=== PATIENT | female | born 1935 | race Caucasian/White ===

== ENCOUNTER 2016-08-07 11:42 | Inpatient (IN) | payer MEDICARE, MEDICAID ==
[~2016-08-07] VITALS: Ht 152.4 cm; Wt 56.4 kg
[2016-08-07] MEDS ORDERED: SODIUM CHLORIDE 0.9% 1000ML BAG (SEPSIS BOLUS) IV ONE (12:00)
[2016-08-07 12:22] LABS: HEMATOCRIT. 30.8 % (36.0-48.0); HEMOGLOBIN. 9.8 g/dL (12.0-16.0); MEAN CORPUSCULAR HEMOGLOBIN 26.1 pg (28.0-32.0); MEAN CORPUSCULAR HGB CONC 31.7 g/dL (31.0-37.0); MEAN CORPUSCULAR VOLUME 82.5 fL (81.0-99.0); PLATELET 635 x1000/uL (130-400); RED BLOOD CELL COUNT 3.73 mill/uL (4.2-5.4); RED CELL DISTRIBUTION WIDTH 15.9 % (11.6-14.6)
[2016-08-07 12:25] LABS: DIFFERENTIAL COMMENT 1; WHITE BLOOD COUNT 43.2 x1000/uL (4.5-11.0)
[2016-08-07 12:29] LABS: INR 1.1; PROTHROMBIN TIME 11.2 sec
[2016-08-07 12:30] LABS: ALBUMIN 1.7 g/dL (3.4-5.0); ANION GAP 14; CALCIUM 8.9 mg/dL (8.5-10.1); CARBON DIOXIDE 30 mEq/L (21-32); CHLORIDE 101 mEq/L (98-107); INDEX HEMOLYSI 1 (1-3); INDEX ICTERIC 1 (1-4); INDEX LIPEMIC 1 (1-3); UREA NITROGEN BLOOD 26 mg/dL (7-21)
[2016-08-07 12:37] LABS: ALANINE AMINOTRANSFERASE 16 IU/L (13-61); TROPONIN I < 0.02 ng/mL (0.00-0.04); eGFR > 60 mL/min (>60)
[2016-08-07 12:39] LABS: LACTIC ACID 2.6 mmol/L (0.4-2.0)
[2016-08-07] MEDS ORDERED: KCL 10MEQ/50ML PREMIX 50 ML IV ONE (12:45)
[2016-08-07] MEDS ORDERED: METRONIDAZOLE 500 MG PREMIX 100 ML IV ONE (12:45)
[2016-08-07] MEDS ORDERED: POTASSIUM CHLORIDE 20MEQ TABLET SR PO ONE (12:45)
[2016-08-07] MEDS ORDERED: CEFTRIAXONE 2 G PREMIX 50 ML IV ONE (12:45)
[2016-08-07 12:51] LABS: MAGNESIUM 1.7 mg/dL (1.8-2.4)
[2016-08-07 13:18] LABS: NUCLEATED RED BLOOD CELLS 1 /100 WBC; PLATELET ESTIMATE MARKEDLY INCREASED; ROULEAUX 1+
[2016-08-07 13:19] LABS: ANISOCYTOSIS 1+
[2016-08-07 13:50] LABS: CLARITY URINE CLOUDY (CLEAR); COLOR URINE DARK YELLOW (YELLOW); GLUCOSE URINE 1+ (NEGATIVE); KETONES URINE NEGATIVE (NEGATIVE); LEUKOCYTE ESTERASE URINE NEGATIVE (NEGATIVE); NITRITE URINE NEGATIVE (NEGATIVE); OCCULT BLOOD URINE NEGATIVE (NEGATIVE); PH URINE 5.5 (4.5-8.0); PROTEIN URINE 2+ (NEGATIVE); SPECIFIC GRAVITY URINE 1.021 (1.005-1.030)
[2016-08-07 14:37] LABS: FINE GRANULAR CASTS URINE 0-5 /lpf; HYALINE CASTS URINE 0-5 /lpf; SQUAMOUS EPITHELIAL CELL URINE RARE /lpf (RARE/1+)
[2016-08-07 14:45] LABS: BACTERIA URINE 3+; RBC URINE NONE SEEN /hpf (0-2); WBC URINE 0-2 /hpf (0-2)
[2016-08-07] MEDS ORDERED: ACETAMINOPHEN 650MG SUPP PR ONE (15:00)
[2016-08-07 18:10] VITALS: BP 136/67
[2016-08-07] MEDS ORDERED: DIATR MEGLU/DIATRIZOATE SOLN 30ML PO SCH (18:30)
[2016-08-07 19:00] VITALS: BP 124/51
[2016-08-07 20:00] VITALS: BP 124/51
[2016-08-07] MEDS ORDERED: METRONIDAZOLE 500 MG PREMIX 100 ML IV SCH ×2 (20:00→23:15)
[2016-08-07 22:00] VITALS: BP 144/83
[2016-08-07] MEDS ORDERED: SODIUM CHLORIDE 0.9% 1,000 ML IV SCH (22:15)
[2016-08-07] MEDS ORDERED: DEXTROSE 50% WATER 50ML SYRINGE IV PRN (22:15)
[2016-08-07] MEDS: VANCOMYCIN HCL 1000 MG/20 ML ORAL PO SCH (22:27)
[2016-08-07] MEDS: METRONIDAZOLE 500 MG PREMIX 100 ML IV SCH (23:00)
[2016-08-07] MEDS: SODIUM CHLORIDE 0.9% 1,000 ML IV SCH (23:01)
[2016-08-07] MEDS: CEFEPIME 1,000 MG in DEXTROSE 5% WATER 50 ML IV SCH (23:55)
[2016-08-08] VITALS (12 sets, daily range): BP systolic 117–136; BP diastolic 51–76
[2016-08-08] MEDS ORDERED: INFLUENZA VIRUS VACCINE 0.5ML SYR IM ONE (00:15)
[2016-08-08] MEDS ORDERED: POTASSIUM CHLORIDE 20 MEQ/PACKET PO NR (00:15)
[2016-08-08] MEDS: VANCOMYCIN HCL 1000 MG/20 ML ORAL PO SCH ×5 (00:44→23:00)
[2016-08-08] MEDS ORDERED: MAGNESIUM 1 G PREMIX 100 ML IV NR ×2 (01:00→02:00)
[2016-08-08] MEDS: METRONIDAZOLE 500 MG PREMIX 100 ML IV SCH ×3 (06:08→22:39)
[2016-08-08 06:38] LABS: CHLORIDE 106 mEq/L (98-107); INDEX HEMOLYSI 1 (1-3); INDEX ICTERIC 1 (1-4); INDEX LIPEMIC 1 (1-3)
[2016-08-08 06:55] LABS: HEMATOCRIT. 26.1 % (36.0-48.0); HEMOGLOBIN. 8.2 g/dL (12.0-16.0); MEAN CORPUSCULAR HEMOGLOBIN 26.1 pg (28.0-32.0); MEAN CORPUSCULAR HGB CONC 31.5 g/dL (31.0-37.0); MEAN CORPUSCULAR VOLUME 82.7 fL (81.0-99.0); PLATELET 447 x1000/uL (130-400); RED BLOOD CELL COUNT 3.16 mill/uL (4.2-5.4); RED CELL DISTRIBUTION WIDTH 16.1 % (11.6-14.6); WHITE BLOOD COUNT 36.1 x1000/uL (4.5-11.0)
[2016-08-08 06:59] LABS: ANION GAP 11; CARBON DIOXIDE 26 mEq/L (21-32); UREA NITROGEN BLOOD 24 mg/dL (7-21); eGFR > 60 mL/min (>60)
[2016-08-08 07:18] LABS: DIFFERENTIAL COMMENT 1
[2016-08-08] MEDS: BLOOD SUGAR DIAGNOSTIC STRIP TEST SCH ×4 (07:30→21:00)
[2016-08-08] MEDS: INSULIN LISPRO 100 UNITS/ML SUBCUT SCH ×4 (08:00→22:44)
[2016-08-08] MEDS: CEFEPIME 1,000 MG in DEXTROSE 5% WATER 50 ML IV SCH (09:32)
[2016-08-08] MEDS ORDERED: LIDOCAINE HCL 1% 20ML VIAL (Pyxis) INJ INFIL NR (10:15)
[2016-08-08 10:44] LABS: ANISOCYTOSIS 1+; PLATELET ESTIMATE INCREASED
[2016-08-08] MEDS: SODIUM CHLORIDE 0.9% 1,000 ML IV SCH (17:00)
[2016-08-08] MEDS ORDERED: MAGN400T26 PO (17:58)
[2016-08-08] MEDS ORDERED: AMLO5TAB4 PO (17:58)
[2016-08-08] MEDS ORDERED: CHOL20004 PO (17:58)
[2016-08-08] MEDS ORDERED: POTA10TA15 PO (17:58)
[2016-08-08] MEDS ORDERED: INSU3INS6 SQ (17:59)
[2016-08-09] VITALS (26 sets, daily range): BP systolic 110–143; BP diastolic 49–110
[2016-08-09] MEDS: METRONIDAZOLE 500 MG PREMIX 100 ML IV SCH ×2 (06:15→14:15)
[2016-08-09] MEDS: VANCOMYCIN HCL 1000 MG/20 ML ORAL PO SCH ×3 (06:16→17:33)
[2016-08-09 06:48] LABS: HEMATOCRIT. 24.8 % (36.0-48.0); MEAN CORPUSCULAR HEMOGLOBIN 26.5 pg (28.0-32.0); MEAN CORPUSCULAR HGB CONC 32.3 g/dL (31.0-37.0); MEAN PLATELET VOLUME 7.6 fl (7.4-10.4); RED BLOOD CELL COUNT 3.03 mill/uL (4.2-5.4); WHITE BLOOD COUNT 34.2 x1000/uL (4.5-11.0)
[2016-08-09 07:12] LABS: ANION GAP 11; CALCIUM 7.8 mg/dL (8.5-10.1); CARBON DIOXIDE 26 mEq/L (21-32); CHLORIDE 108 mEq/L (98-107); INDEX HEMOLYSI 1 (1-3); INDEX ICTERIC 1 (1-4); INDEX LIPEMIC 1 (1-3); UREA NITROGEN BLOOD 25 mg/dL (7-21); eGFR > 60 mL/min (>60)
[2016-08-09 07:28] LABS: DIFFERENTIAL COMMENT 1
[2016-08-09] MEDS: BLOOD SUGAR DIAGNOSTIC STRIP TEST SCH ×4 (07:30→21:05)
[2016-08-09] MEDS: CEFEPIME 1,000 MG in DEXTROSE 5% WATER 50 ML IV SCH ×2 (09:02→21:05)
[2016-08-09] MEDS: SODIUM CHLORIDE 0.9% 1,000 ML IV SCH (09:05)
[2016-08-09] MEDS: INSULIN LISPRO 100 UNITS/ML SUBCUT SCH ×4 (09:13→21:15)
[2016-08-09 09:21] LABS: ANISOCYTOSIS 1+; GIANT PLATELETS FEW; PLATELET 449 x1000/uL (130-400); PLATELET ESTIMATE INCREASED
[2016-08-10] VITALS (21 sets, daily range): BP systolic 115–168; BP diastolic 51–128
[2016-08-10] MEDS: METRONIDAZOLE 500 MG PREMIX 100 ML IV SCH ×4 (00:26→23:20)
[2016-08-10] MEDS: VANCOMYCIN HCL 1000 MG/20 ML ORAL PO SCH ×3 (00:26→12:05)
[2016-08-10] MEDS: SODIUM CHLORIDE 0.9% 1,000 ML IV SCH (00:26)
[2016-08-10] MEDS ORDERED: POTASSIUM CHLORIDE INJ 40 MEQ in DEXT 5% WATER 250 ML IV NR (01:00)
[2016-08-10] MEDS: BLOOD SUGAR DIAGNOSTIC STRIP TEST SCH ×4 (07:30→21:00)
[2016-08-10] MEDS: CEFEPIME 1,000 MG in DEXTROSE 5% WATER 50 ML IV SCH ×2 (08:36→23:20)
[2016-08-10] MEDS: INSULIN LISPRO 100 UNITS/ML SUBCUT SCH ×4 (08:37→21:13)
[2016-08-10 09:56] LABS: HEMATOCRIT. 33.9 % (36.0-48.0); MEAN CORPUSCULAR HEMOGLOBIN 26.8 pg (28.0-32.0); MEAN CORPUSCULAR HGB CONC 32.1 g/dL (31.0-37.0); MEAN CORPUSCULAR VOLUME 83.5 fL (81.0-99.0); MEAN PLATELET VOLUME 7.4 fl (7.4-10.4); PLATELET 404 x1000/uL (130-400); RED BLOOD CELL COUNT 4.06 mill/uL (4.2-5.4); WHITE BLOOD COUNT 32.4 x1000/uL (4.5-11.0)
[2016-08-10 09:58] LABS: DIFFERENTIAL COMMENT 1
[2016-08-10 09:59] LABS: HEMOGLOBIN. 10.9 g/dL (12.0-16.0)
[2016-08-10 10:12] LABS: ALANINE AMINOTRANSFERASE < 6 IU/L (13-61); ALBUMIN 1.2 g/dL (3.4-5.0); ANION GAP 15; CALCIUM 7.8 mg/dL (8.5-10.1); CARBON DIOXIDE 21 mEq/L (21-32); CHLORIDE 111 mEq/L (98-107); INDEX HEMOLYSI 1 (1-3); INDEX ICTERIC 1 (1-4); INDEX LIPEMIC 1 (1-3); MAGNESIUM 1.7 mg/dL (1.8-2.4); UREA NITROGEN BLOOD 22 mg/dL (7-21); eGFR > 60 mL/min (>60)
[2016-08-10 10:29] LABS: ANISOCYTOSIS 1+; PLATELET ESTIMATE SLIGHTLY INCREASED
[2016-08-10 10:30] LABS: TOXIC GRANULATION 1+
[2016-08-10] MEDS ORDERED: POTASSIUM CHLORIDE 20 MEQ/PACKET PO NR (11:30)
[2016-08-10] MEDS: AMLODIPINE 5MG TABLET PO SCH (12:05)
[2016-08-10] MEDS ORDERED: MAGNESIUM 1 G PREMIX 100 ML IV NR (13:30)
[2016-08-10] MEDS ORDERED: VANCOMYCIN 1 G PREMIX 200 ML IV SCH (18:00)
[2016-08-11] VITALS (12 sets, daily range): BP systolic 107–149; BP diastolic 39–108
[2016-08-11] MEDS: VANCOMYCIN 750 MG PREMIX 150 ML IV SCH ×2 (06:22→23:17)
[2016-08-11] MEDS: METRONIDAZOLE 500 MG PREMIX 100 ML IV SCH ×3 (06:26→22:34)
[2016-08-11] MEDS: BLOOD SUGAR DIAGNOSTIC STRIP TEST SCH ×4 (07:30→21:00)
[2016-08-11] MEDS: PANTOPRAZOLE 40MG DR TABLET PO SCH ×2 (09:38→16:49)
[2016-08-11] MEDS: AMLODIPINE 5MG TABLET PO SCH (09:38)
[2016-08-11] MEDS: CEFEPIME 1,000 MG in DEXTROSE 5% WATER 50 ML IV SCH ×2 (09:38→21:17)
[2016-08-11] MEDS: INSULIN LISPRO 100 UNITS/ML SUBCUT SCH ×4 (09:39→21:00)
[2016-08-11] MEDS ORDERED: LACTULOSE 20G/30ML UDC PO SCH (12:30)
[2016-08-11 12:58] LABS: HEMATOCRIT. 34.2 % (36.0-48.0); HEMOGLOBIN. 11.2 g/dL (12.0-16.0); MEAN CORPUSCULAR HEMOGLOBIN 26.9 pg (28.0-32.0); MEAN CORPUSCULAR HGB CONC 32.6 g/dL (31.0-37.0); MEAN CORPUSCULAR VOLUME 82.4 fL (81.0-99.0); PLATELET 470 x1000/uL (130-400); RED BLOOD CELL COUNT 4.15 mill/uL (4.2-5.4); WHITE BLOOD COUNT 28.5 x1000/uL (4.5-11.0)
[2016-08-11 13:00] LABS: DIFFERENTIAL COMMENT 1
[2016-08-11 13:20] LABS: CHLORIDE 114 mEq/L (98-107); INDEX HEMOLYSI 1 (1-3); INDEX ICTERIC 1 (1-4); INDEX LIPEMIC 1 (1-3)
[2016-08-11] MEDS: INSULIN DETEMIR UD 100 UNITS/ML SYR SUBCUT SCH (13:21)
[2016-08-11 13:28] LABS: ANION GAP 11; CALCIUM 7.9 mg/dL (8.5-10.1); CARBON DIOXIDE 21 mEq/L (21-32); UREA NITROGEN BLOOD 21 mg/dL (7-21); eGFR > 60 mL/min (>60)
[2016-08-11] MEDS ORDERED: POTASSIUM CHLORIDE 20MEQ TABLET SR PO NR ×2 (14:00→16:45)
[2016-08-11 14:15] LABS: ANISOCYTOSIS 1+; PLATELET ESTIMATE INCREASED
[2016-08-11] MEDS: ENOXAPARIN 60MG/0.6ML SYR SUBCUT SCH ×2 (16:51→23:17)
[2016-08-11] MEDS: SODIUM CHLORIDE 0.9% 1,000 ML IV SCH (17:00)
[2016-08-11] MEDS ORDERED: POTASSIUM CHLORIDE 20 MEQ/PACKET PO NR (17:30)
[2016-08-12] VITALS (11 sets, daily range): BP systolic 95–135; BP diastolic 35–93
[2016-08-12] MEDS: SODIUM CHLORIDE 0.9% 1,000 ML IV SCH ×2 (02:57→18:29)
[2016-08-12 06:43] LABS: HEMATOCRIT. 33.1 % (36.0-48.0); HEMOGLOBIN. 10.7 g/dL (12.0-16.0); MEAN CORPUSCULAR HEMOGLOBIN 26.5 pg (28.0-32.0); MEAN CORPUSCULAR HGB CONC 32.4 g/dL (31.0-37.0); MEAN CORPUSCULAR VOLUME 81.7 fL (81.0-99.0); MEAN PLATELET VOLUME 7.5 fl (7.4-10.4); PLATELET 454 x1000/uL (130-400); RED BLOOD CELL COUNT 4.05 mill/uL (4.2-5.4); RED CELL DISTRIBUTION WIDTH 16.5 % (11.6-14.6); WHITE BLOOD COUNT 27.8 x1000/uL (4.5-11.0)
[2016-08-12] MEDS: METRONIDAZOLE 500 MG PREMIX 100 ML IV SCH ×2 (06:50→15:30)
[2016-08-12] MEDS: BLOOD SUGAR DIAGNOSTIC STRIP TEST SCH ×3 (06:51→17:22)
[2016-08-12 06:57] LABS: ALANINE AMINOTRANSFERASE < 6 IU/L (13-61); ALBUMIN 1.2 g/dL (3.4-5.0); ANION GAP 12; BILIRUBIN DIRECT 0.1 mg/dL (0.0-0.2); CARBON DIOXIDE 22 mEq/L (21-32); CHLORIDE 115 mEq/L (98-107); INDEX HEMOLYSI 1 (1-3); INDEX ICTERIC 1 (1-4); INDEX LIPEMIC 1 (1-3); MAGNESIUM 1.7 mg/dL (1.8-2.4); UREA NITROGEN BLOOD 18 mg/dL (7-21); eGFR > 60 mL/min (>60)
[2016-08-12] MEDS: INSULIN LISPRO 100 UNITS/ML SUBCUT SCH ×3 (07:28→17:22)
[2016-08-12] MEDS: PANTOPRAZOLE 40MG DR TABLET PO SCH ×2 (08:54→17:22)
[2016-08-12] MEDS: CEFEPIME 1,000 MG in DEXTROSE 5% WATER 50 ML IV SCH (08:54)
[2016-08-12] MEDS: AMLODIPINE 5MG TABLET PO SCH (08:55)
[2016-08-12] MEDS: ENOXAPARIN 60MG/0.6ML SYR SUBCUT SCH (08:56)
[2016-08-12 09:29] LABS: DIFFERENTIAL COMMENT 1
[2016-08-12] MEDS: INSULIN DETEMIR UD 100 UNITS/ML SYR SUBCUT SCH (11:17)
[2016-08-12] MEDS ORDERED: POTASSIUM CHLORIDE 20 MEQ/PACKET PO NR (13:45)
[2016-08-12] MEDS ORDERED: MAGNESIUM 1 G PREMIX 100 ML IV NR (15:00)
[2016-08-12 17:14] LABS: PLATELET ESTIMATE INCREASED
[2016-08-12] MEDS: VANCOMYCIN 750 MG PREMIX 150 ML IV SCH (17:22)
== END 2016-08-12 20:00 | DRG 853 ==
LOC: ER 12:07 → 5EST 12:58
PROVIDERS: ADMIT Family Medicine Adult Medicine; ATTEND Family Medicine Adult Medicine
PROC: 02HV33Z Insertion of Infusion Device into Superior Vena Cava, Percutaneous Approach (ICD-10-PCS; 2016-08-07)
PROC: B5181ZA Fluoroscopy of Superior Vena Cava using Low Osmolar Contrast, Guidance (ICD-10-PCS; 2016-08-07)
PROC: B548ZZA Ultrasonography of Superior Vena Cava, Guidance (ICD-10-PCS; 2016-08-07)
PROC: 0KBP0ZZ Excision of Left Hip Muscle, Open Approach (ICD-10-PCS; principal; 2016-08-09)
PROC: 0KBN0ZZ Excision of Right Hip Muscle, Open Approach (ICD-10-PCS; 2016-08-09)
PROC: 30233N1 Transfusion of Nonautologous Red Blood Cells into Peripheral Vein, Percutaneous Approach (ICD-10-PCS; 2016-08-10)
PROC: 02H633Z Insertion of Infusion Device into Right Atrium, Percutaneous Approach (ICD-10-PCS; 2016-08-11)
PROC: B244ZZZ Ultrasonography of Right Heart (ICD-10-PCS; 2016-08-11)
PROC: B2141ZZ Fluoroscopy of Right Heart using Low Osmolar Contrast (ICD-10-PCS; 2016-08-11)
DX: A41.9 Sepsis, unspecified organism (principal); L89.154 Pressure ulcer of sacral region, stage 4; E46 Unspecified protein-calorie malnutrition; L03.90 Cellulitis, unspecified; M86.9 Osteomyelitis, unspecified; I82.621 Acute embolism and thrombosis of deep veins of right upper extremity; I69.351 Hemiplegia and hemiparesis following cerebral infarction affecting right dominant side; E11.69 Type 2 diabetes mellitus with other specified complication; I10 Essential (primary) hypertension; E83.42 Hypomagnesemia; E87.6 Hypokalemia; F03.90 Unspecified dementia, unspecified severity, without behavioral disturbance, psychotic disturbance, mood disturbance, and anxiety; G20 Parkinson's disease; E78.5 Hyperlipidemia, unspecified; D64.9 Anemia, unspecified; K52.9 Noninfective gastroenteritis and colitis, unspecified; Z79.4 Long term (current) use of insulin; Z74.01 Bed confinement status; Z68.24 Body mass index [BMI] 24.0-24.9, adult; I69.30 Unspecified sequelae of cerebral infarction
CPT/HCPCS: 36415; 36569; 51702; 71010; 72195; 74176; 76937; 77001; 80048; 80053; 80076; 81001; 82270; 82962; 83036; 83605; 83735; 84132; 84484; 85025; 85610; 85651; 86140; 86850; 86900; 86920; 87015; 87040; 87045; 87086; 87427; 87449; 87493; 90686; 92610; 93005; 93970; 99291; A6261; C1725; C1769; J0692; J0696; J1650; J1815; J3370; J3475; J3480; J3490; J7030; J7040; J7050; J7060; P9016